=== PATIENT | female | born 1990 | race Caucasian/White ===

== ENCOUNTER 2023-06-09 03:16 | Emergency (ER) | payer SELFPAY ==
[~2023-06-09] VITALS: Ht 157.5 cm; Wt 90.0 kg
[2023-06-09 03:30] VITALS: BP 150/100; PULSE 110; RESP 18; O2SAT 98
[2023-06-09] MEDS ORDERED: BACITRACIN ZINC OINT UDPKT TOP ONE (05:45)
[2023-06-09] MEDS ORDERED: LIDOCAINE HCL/EPINEPHRINE 1%-EPI 1:100,000 20 ML VIAL INFIL ONE (05:45)
[2023-06-09] MEDS ORDERED: ACETAMINOPHEN 325MG TABLET PO ONE (05:45)
[2023-06-09] MEDS ORDERED: LIDOCAINE HCL/EPINEPHRINE 1%-EPI 1:100,000 10 ML VIAL INFIL NR (05:45)
[2023-06-09] MEDS ORDERED: TETANUS, DIPHTHERIA, PERTUSSIS VAC/PF 0.5ML (>10YR OLD) IM ONE (05:45)
[2023-06-09 06:06] VITALS: TEMP 98.9
== END 2023-06-09 08:53 | disposition home or self-care (01) ==
LOC: ER 03:16
DX: S01.01XA Laceration without foreign body of scalp, initial encounter (principal); Y08.89XA Assault by other specified means, initial encounter; F41.9 Anxiety disorder, unspecified; J45.909 Unspecified asthma, uncomplicated; Y93.89 Activity, other specified; Y92.89 Other specified places as the place of occurrence of the external cause; Y99.8 Other external cause status
CPT/HCPCS: 70450; 90715; 12002; 90471; 99285; J3490; Z7610 ×3